=== PATIENT | male | born 1960 | race Caucasian/White ===

== ENCOUNTER 2023-03-19 11:10 | Outpatient (RCR) | payer BC | END 2023-04-02 | disposition home or self-care (01) | LOC: CR 11:10 | PROVIDERS: ATTEND Surgery | DX: Z29.8 Encounter for other specified prophylactic measures (principal); I25.119 Atherosclerotic heart disease of native coronary artery with unspecified angina pectoris | CPT/HCPCS: 93798 ==

== ENCOUNTER 2023-03-22 13:51 | Emergency (ER) | payer BC ==
[~2023-03-22] VITALS: Ht 177 cm; Wt 104.0 kg
--- NOTE | 2023-03-22 14:59 | ED Cough/URI ---
General Chief Complaint: Cough/Cold/Flu Symptoms Stated Complaint: FEVER COUGH Nursing Triage Note: ARRIVED VIA AMB TO ROOM 07 WITH COMPLAINTS OF COUGH X2 WEEKS AND FEVER STARTING ON FRI. COVID NEG ON FRI. OPEN HEART 02-06-23. Source: patient Exam Limitations: no limitations History of Present Illness Date Seen by Provider: March 22, 2023 Time Seen by Provider: 14:56 Initial Comments Patient is a 62-year-old male who presents ED complaining of a dry nonproductive cough over the past 2 weeks. Coughing is worse when lying down. Denies of any shortness of breath. Patient has developed some chest wall pain, arm pain secondary to the cough. Denies of any wheezing or specific chest pain patient reports body aches fatigue and weakness. States he has had a temperature as high as 101.6 at home. Has been taken Tylenol for this fever. Patient denies of any nausea vomiting, diarrhea. Patient had open heart surgery February [address] [facility]. Was scheduled to follow-up with his primary care physician Talon yesterday but did not make the appointment secondary to not feeling well. He is currently on Eliquis. Was recommended come the ED today to rule out pneumonia versus PE. Patient denies abdominal pain, headache, dizziness, visual changes, sore throat, ear pain Allergies and Home Medications Allergies Coded Allergies: Penicillins (Verified Allergy, Unknown, 03/22/23) Patient Home Medication List Home Medication List Reviewed: Yes Review of Systems Review of Systems Constitutional: No chills, No diaphoresis EENTM: No hearing loss, No ear pain, No blurred vision, No double vision Respiratory: cough; No dyspnea on exertion Cardiovascular: chest pain Gastrointestinal: No abdominal pain, No diarrhea, No nausea, No vomiting Genitourinary: No decreased output Musculoskeletal: No back pain, No joint pain Skin: No change in color, No change in hair/nails All Other Systems Reviewed Negative Unless Noted: Yes Past Qabpigk-Rjpdmb-Brnsqr Hx Patient Social History Tobacco Use?: No Substance use?: No Alcohol Use?: No Physical Exam Vital Signs - First Documented 03/22/23 14:28 Temp 36.9 Pulse 101 Resp 16 B/P (MAP) 152/83 (106) Pulse Ox 98 O2 Delivery Room Air Capillary Refill : Less Than 3 Seconds Height: '" Weight: lbs. oz. 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 nml as tested, no motor/sensory deficits, alert, normal mood/affect, oriented x 3 Skin: normal color, warm/dry Focused Exam Lactate Level 03/22/23 14:50: Lactic Acid Level 2.01*H 03/22/23 17:51: Lactic Acid Level 1.90 Lactic Acid Level Laboratory Tests Test 03/22/23 14:50 03/22/23 17:51 Lactic Acid Level 2.01 MMOL/L (0.50-2.00) *H 1.90 MMOL/L (0.50-2.00) Progress/Results/Core Measures Suspected Sepsis SIRS Temperature: Pulse: 101 Respiratory Rate: 16 Laboratory Tests 03/22/23 14:50: White Blood Count 19.0H Blood Pressure 152 /83 Mean: 106 03/22/23 14:50: Lactic Acid Level 2.01*H 03/22/23 17:51: Lactic Acid Level 1.90 Laboratory Tests 03/22/23 14:50: Creatinine 1.18, INR Comment 1.4, Platelet Count 256, Total Bilirubin 1.0 Results/Orders Lab Results Laboratory Tests Test 03/22/23 14:28 03/22/23 14:50 03/22/23 15:00 03/22/23 17:51 Range/Units Urine Color YELLOW Urine Clarity CLEAR Urine pH 5.0 5-9 Urine Specific Ward 1.015 L 1.016-1.022 Urine Protein TRACE H NEGATIVE Urine Glucose (UA) 3+ H NEGATIVE Urine Ketones NEGATIVE NEGATIVE Urine Nitrite NEGATIVE NEGATIVE Urine Bilirubin NEGATIVE NEGATIVE Urine Urobilinogen 0.2 < = 1.0 MG/DL Urine Leukocyte Esterase NEGATIVE NEGATIVE Urine RBC (Auto) 3+ H NEGATIVE Urine RBC 5-10 H /HPF Urine WBC RARE /HPF Urine Squamous Epithelial Cells 2-5 /HPF Urine Crystals PRESENT H /LPF Urine Amorphous Sediment FEW PACHECO URATES H /LPF Urine Bacteria FEW H /HPF Urine Casts PRESENT /LPF Urine Coarse Granular Casts 2-5 H /LPF Urine Mucus SMALL H /LPF Urine Culture Indicated CULTURE PENDING White Blood Count 19.0 H 4.3-11.0 10^3/uL Red Blood Count 4.73 4.30-5.52 10^6/uL Hemoglobin 14.2 13.3-17.7 g/dL Hematocrit 43 40-54 % Mean Corpuscular Volume 91 80-99 fL Mean Corpuscular Hemoglobin 30 25-34 pg Mean Corpuscular Hemoglobin Concent 33 32-36 g/dL Red Cell Distribution Width 14.7 H 10.0-14.5 % Platelet Count 256 130-400 10^3/uL Mean Platelet Volume 11.0 9.0-12.2 fL Immature Granulocyte % (Auto) 1 % Neutrophils (%) (Auto) 90 H 42-75 % Lymphocytes (%) (Auto) 3 L 12-44 % Monocytes (%) (Auto) 6 0-12 % Eosinophils (%) (Auto) 0 0-10 % Basophils (%) (Auto) 0 0-10 % Neutrophils # (Auto) 17.1 H 1.8-7.8 10^3/uL Lymphocytes # (Auto) 0.6 L 1.0-4.0 10^3/uL Monocytes # (Auto) 1.1 H 0.0-1.0 10^3/uL Eosinophils # (Auto) 0.0 0.0-0.3 10^3/uL Basophils # (Auto) 0.0 0.0-0.1 10^3/uL Immature Granulocyte # (Auto) 0.1 0.0-0.1 10^3/uL Neutrophils % (Manual) 83 % Lymphocytes % (Manual) 9 % Monocytes % (Manual) 5 % Basophils % (Manual) 1 % Band Neutrophils 2 % Platelet Estimate NORMAL Blood Morphology Comment NORMAL Prothrombin Time 17.0 H 12.2-14.7 SEC INR Comment 1.4 0.8-1.4 Activated Partial Thromboplast Time 42 H 24-35 SEC Sodium Level 140 135-145 MMOL/L Potassium Level 3.6 3.6-5.0 MMOL/L Chloride Level 104 98-107 MMOL/L Carbon Dioxide Level 24 21-32 MMOL/L Anion Gap 12 5-14 MMOL/L Blood Urea Nitrogen 25 H 7-18 MG/DL Creatinine 1.18 0.60-1.30 MG/DL Estimat Glomerular Filtration Rate 69 BUN/Creatinine Ratio 21 Glucose Level 211 H 70-105 MG/DL Lactic Acid Level 2.01 *H 1.90 0.50-2.00 MMOL/L Calcium Level 9.3 8.5-10.1 MG/DL Corrected Calcium 9.6 8.5-10.1 MG/DL Total Bilirubin 1.0 0.1-1.0 MG/DL Aspartate Amino Transf (AST/SGOT) 14 5-34 U/L Alanine Aminotransferase (ALT/SGPT) 17 0-55 U/L Alkaline Phosphatase 113 40-136 U/L Troponin I 0.051 H <0.028 NG/ML B-Type Natriuretic Peptide 191.1 H <100.0 PG/ML Total Protein 6.7 6.4-8.2 GM/DL Albumin 3.6 3.2-4.5 GM/DL Influenza Type A (RT-PCR) Not Detected Not Detecte Influenza Type B (RT-PCR) Not Detected Not Detecte SARS-CoV-2 RNA (RT-PCR) Not Detected Not Detecte Micro Results Microbiology 03/22/23 Blood Culture - Final, Complete Staphylococcus aureus See Comments 03/22/23 Blood Culture - Final, Complete Staphylococcus aureus See Comments 03/22/23 Urine Culture - Final, Complete NO GROWTH My Orders Orders - ROSARIO DAO Cbc With Automated Diff (03/22/23 14:54) Comprehensive Metabolic Panel (03/22/23 14:54) Blood Culture (03/22/23 14:54) Urinalysis (03/22/23 14:54) Urine Culture (03/22/23 14:54) Protime With Inr (03/22/23 14:54) Partial Thromboplastin Time (03/22/23 14:54) Ed Iv/Invasive Line Start (03/22/23 14:54) Ekg Tracing (03/22/23 14:54) Troponin I [place] (03/22/23 14:54) Vital Signs Adult Sepsis Patie Q15M (03/22/23 14:54) Lactic Acid Analyzer (03/22/23 14:54) Influenza A And B By Pcr (03/22/23 14:54) Covid 19 Inhouse Test (03/22/23 14:54) Ct Angio Chest W (R/O Pe) (03/22/23 14:54) Bnp Héctor (03/22/23 14:54) Manual Differential (03/22/23 14:50) Cefepime Injection (Maxipime Injection) (03/22/23 15:30) Ns Iv 1000 Ml (Sodium Chloride 0.9%) (03/22/23 15:41) Iohexol Injection (Omnipaque 350 Mg/Ml 1 (03/22/23 16:00) Received Contrast (Hold Metformin- Contr (03/22/23 16:00) Ns (Ivpb) (Sodium Chloride 0.9% Ivpb Bag (03/22/23 16:00) Vancomycin Injection (Vancomycin Injecti (03/22/23 17:30) Aspirin Chewable Tablet (Baby Aspirin Ch (03/22/23 18:00) Morphine Injection (Morphine Injection (03/22/23 18:00) Medications Given in ED Vital Signs/I&O 03/22/23 03/22/23 03/22/23 03/22/23 14:28 16:22 16:24 18:00 Temp 36.9 37.2 Pulse 101 103 103 Resp 16 16 16 B/P (MAP) 152/83 (106) 142/77 (98) 165/85 (111) Pulse Ox 98 96 96 O2 Delivery Room Air Room Air Room Air 03/22/23 19:37 Temp 37.2 Pulse 102 Resp 16 B/P (MAP) 130/74 Pulse Ox 97 O2 Delivery Room Air Capillary Refill : Less Than 3 Seconds Blood Pressure Mean: 106 ECG Comment Sinus rhythm, intraventricular conduction delay, 98 bpm, QRS duration 134 MS, QTc 384 MS Departure Communication (PCP) Patient is 1 month and a half post open heart surgery. This was performed at [facility]. Cardiac thoracic surgeon Dr. Garcia. Follows eye surgeon in [place]. Patient states over the past 2 months a dry nonproductive cough with substernal chest pain with a cough. He denies of any shortness of breath, wheezing, abdominal pain, vomiting or diarrhea. Low-grade temperature at home. Denies of any leg swelling. Is currently on Eliquis. Patient was recommended come the ED by his primary care physician to rule out pneumonia versus PE. On exam patient in no respiratory distress. Was slightly tachycardic but afebrile. Slightly hypertensive. General cardiac work-up, CT angio of the chest, blood cultures and lactic acid was ordered secondary to the tachycardia and concerning for pneumonia. CBC showed a white blood count of 19. Chemistry showed normal electrolytes and kidney function. Troponin 0.051. BNP 191. Lactic acid 2.01. Patient was given cefepime antibiotic. Patient Was given a liter of fluid due to the tachycardia at a low rate. Patient was given 2 mg of morphine and aspirin 324 mg. EKG shows sinus rhythm without evidence of ST elevation or depression. Concerning for NSTEMI versus pneumonia versus PE. CT angio of the chest showed small bilateral pleural effusions. No evidence of PE or pneumonia. Moderate substernal edema and fluid without evidence of a rim enhancing lesion. Differential would be concern for substernal infection however would not suspect infection a month and a half out. He did states he had some leakage around his surgical scar about a week ago. No leakage at this time. Surgical scar appears to be healing. My concern at this time with elevated troponin, concern for infection secondary to the elevated white blood count and who require IV antibiotics and further evaluation. Troponin may be chronically elevated however recommend serial troponins. Chest pain appears to be worse with the cough. States he had similar type chest pain post surgery but that chest pain improved. Due to the substernal edema and fluid contacted cardiac thoracic surgeon at [facility] Dr. Poe. He did not seem concerned that this was infection however he did recommend admission and further consult and evaluation. Recommend started on antibiotics. Did give vancomycin here as well. Due to not having cardiac thoracic surgery here recommended transfer to [facility]. Currently have no ground EMS. Patient refused air. Discussed that patient needs to be transferred by medical services. He refused to go to [facility]. He states that his son could take him by POV. This would be the only way of transfer. He agreed to sign out AMA and to drive by POV. This was discussed with [facility] and they were okay as long as I was okay. I am not comfortable sending by POV however patient refused any type of medical care if not transferred by POV. Accepting physician is Dr. Bertrand hospitalist. Did not recommend anticoagulant at this time Impression Primary Impression: Elevated troponin Additional Impression: Substernal chest pain Disposition: 02 XFER SHT-TRM HOSP Condition: Stable Transfer Transfer Reason: Exceeds level of care Time Spoke to Accepting Phy: 17:56 Transfer Progress Notes Accepted at [facility] Dr. Jil gallego Transfer Time: 17:56 Transfer Facility: [facility] Method of Transfer: Private Vehicle Departure-Patient Inst. Referrals: NO,LOCAL PHYSICIAN (PCP) Primary Care Physician ROSARIO DAO March 22, 2023 14:59
[2023-03-22 15:13] LABS: BASOPHILS % (AUTO) 0 % (0-10); EOSINOPHILS % (AUTO) 0 % (0-10); HEMATOCRIT 43 % (40-54); HEMOGLOBIN 14.2 g/dL (13.3-17.7); LYMPHOCYTES # (AUTO) 0.6 10^3/uL (1.0-4.0); LYMPHOCYTES % (AUTO) 3 % (12-44); MEAN CORPUSCULAR HEMOGLOBIN 30 pg (25-34); MEAN CORPUSCULAR HGB CONC 33 g/dL (32-36); MEAN CORPUSCULAR VOLUME 91 fL (80-99); MONOCYTES # (AUTO) 1.1 10^3/uL (0.0-1.0); MONOCYTES % (AUTO) 6 % (0-12); NEUTROPHILS # (AUTO) 17.1 10^3/uL (1.8-7.8); NEUTROPHILS % (AUTO) 90 % (42-75); PLATELET COUNT 256 10^3/uL (130-400)
[2023-03-22 15:25] LABS: ALBUMIN 3.6 GM/DL (3.2-4.5); INR 1.4 (0.8-1.4); POTASSIUM 3.6 MMOL/L (3.6-5.0)
[2023-03-22 15:26] LABS: BILIRUBIN,URINE NEGATIVE (NEGATIVE); CLARITY,URINE CLEAR; COLOR,URINE YELLOW; GLUCOSE, URINE (UA) 3+ (NEGATIVE); KETONES,URINE NEGATIVE (NEGATIVE); LEUKOCYTE ESTERASE ,URINE NEGATIVE (NEGATIVE); NITRITE,URINE NEGATIVE (NEGATIVE); PROTEIN,URINE TRACE (NEGATIVE)
[2023-03-22 15:26] LABS: CALCIUM 9.3 MG/DL (8.5-10.1)
[2023-03-22 15:27] LABS: TOTAL PROTEIN 6.7 GM/DL (6.4-8.2)
[2023-03-22] MEDS ORDERED: CEFEPIME INJECTION 1,000 MG in NS (IVPB) 50 ML IV ONE (15:30)
[2023-03-22 15:31] LABS: CREATININE SERUM 1.18 MG/DL (0.60-1.30)
[2023-03-22] MEDS ORDERED: NS IV 1000 ML 1,000 ML IV STA (15:41)
[2023-03-22 15:50] LABS: AMORPHOUS SEDIMENT,UR FEW AMOR URATES /LPF; BACTERIA,URINE FEW /HPF; WBC,URINE RARE /HPF
[2023-03-22] MEDS ORDERED: IOHEXOL 350 MG/ML 100 ML (OMNIPAQUE 350) VIAL IV ONE (16:00)
[2023-03-22] MEDS ORDERED: NS 100 ML (IVPB) BAG IV ONE (16:00)
[2023-03-22] MEDS ORDERED: HOLD METFORMIN - RECEIVED CONTRAST 20 ML VIAL IV SCH (16:00)
[2023-03-22 16:07] LABS: BAND NEUTROPHILS 2 %; BASOPHILS % (MANUAL) 1 %; LYMPHOCYTES % (MANUAL) 9 %; MONOCYTES % (MANUAL) 5 %; NEUTROPHILS % (MANUAL) 83 %; PLATELET ESTIMATE NORMAL; RBC MORPH NORMAL
--- NOTE | 2023-03-22 16:29 | Diagnostic Imaging Report ---
HISTORY: Shortness of breath and chest pain. TECHNIQUE: Axial CT of the chest was performed following intravenous administration of contrast timed for evaluation of the pulmonary arteries with sagittal, coronal and MIP reformats. All CT scans use one or more of the following dose optimizing techniques: automated exposure control, MA and/or KvP adjustment based on patient size and exam type or iterative reconstruction. COMPARISON: None. FINDINGS: The bolus timing is somewhat suboptimal, likely due to transient interruption of contrast from respiration. Pulmonary arteries are diagnostic to the lobar and some proximal segmental levels. No filling defect is seen to indicate a pulmonary embolus. The heart is normal in size. Sternotomy wires and post-CABG changes are seen. There is moderate substernal edema and fluid. Contrast timing is suboptimal to evaluate for a rim-enhancing fluid collection, but no definite drainable collection is seen. The aorta is normal in caliber. There is no mediastinal adenopathy. There are small bilateral pleural effusions. There is dependent atelectasis. There is additional atelectasis in the left lung base. There is no pneumothorax. No acute osseous abnormality is seen. Imaged portions of the upper abdomen demonstrate no acute abnormality. IMPRESSION: 1. Suboptimal contrast bolus, but no pulmonary embolus is seen. 2. Moderate substernal edema and fluid, likely secondary to recent sternotomy. 3. Small bilateral pleural effusions with atelectasis. Dictated by: Dictated on workstation # [id number]
[2023-03-22] MEDS ORDERED: VANCOMYCIN INJECTION 1,000 MG in NS (IVPB) 250 ML IV ONE (17:30)
[2023-03-22] MEDS ORDERED: ASPIRIN 81 MG CHEW (CHILDREN'S ASA) PO ONE (18:00)
[2023-03-22] MEDS ORDERED: morphine INJ 10 MG/ML 1ML (SYR OR VIAL) IVP STA (18:00)
[2023-03-22 19:37] VITALS: BP 130/74
== END 2023-03-22 19:37 | disposition short-term general hospital (02) ==
LOC: EDUNIT# 13:51 → ER 13:54
DX: R77.8 Other specified abnormalities of plasma proteins (principal); J90 Pleural effusion, not elsewhere classified; Z79.01 Long term (current) use of anticoagulants; Z88.0 Allergy status to penicillin; Z28.310 Unvaccinated for COVID-19; Z20.822 Contact with and (suspected) exposure to COVID-19
CPT/HCPCS: 36415; 71275; 80053; 81000; 83605; 83880; 84484; 85007; 85027; 85610; 85730; 87040; 87077; 87088; 87636; 93005

== ENCOUNTER → 2023-04-21 | Outpatient (CLI) | payer BC ==
[2023-04-21 20:32] LABS: BASOPHILS # (AUTO) 0.1 10^3/uL (0.0-0.1); BASOPHILS % (AUTO) 1 % (0-10); EOSINOPHILS % (AUTO) 15 % (0-10); HEMATOCRIT 38 % (40-54); HEMOGLOBIN 12.2 g/dL (13.3-17.7); LYMPHOCYTES # (AUTO) 1.2 10^3/uL (1.0-4.0); LYMPHOCYTES % (AUTO) 18 % (12-44); MEAN CORPUSCULAR HEMOGLOBIN 30 pg (25-34); MEAN CORPUSCULAR HGB CONC 32 g/dL (32-36); MEAN CORPUSCULAR VOLUME 93 fL (80-99); MEAN PLATELET VOLUME 10.7 fL (9.0-12.2); MONOCYTES # (AUTO) 0.5 10^3/uL (0.0-1.0); MONOCYTES % (AUTO) 7 % (0-12); NEUTROPHILS # (AUTO) 4.1 10^3/uL (1.8-7.8); NEUTROPHILS % (AUTO) 60 % (42-75); PLATELET COUNT 235 10^3/uL (130-400); WHITE BLOOD COUNT 6.8 10^3/uL (4.3-11.0)
[2023-04-21 20:45] LABS: ALANINE AMINOTRANSFERASE < 6 U/L (0-55); ALBUMIN 3.6 GM/DL (3.2-4.5); ALKALINE PHOSPHATASE 119 U/L (40-136); BILIRUBIN,TOTAL 0.5 MG/DL (0.1-1.0); BUN/CREATININE RATIO 21; CALCIUM 8.2 MG/DL (8.5-10.1); CARBON DIOXIDE 26 MMOL/L (21-32); CHLORIDE 107 MMOL/L (98-107); CREATININE SERUM 1.16 MG/DL (0.60-1.30); GFR ESTIMATED 70; GLUCOSE 157 MG/DL (70-105); POTASSIUM 3.9 MMOL/L (3.6-5.0); SODIUM 142 MMOL/L (135-145); TOTAL PROTEIN 5.9 GM/DL (6.4-8.2)
[2023-04-21 21:00] LABS: BAND NEUTROPHILS 4 %; EOSINOPHILS % (MANUAL) 12 %; LYMPHOCYTES % (MANUAL) 19 %; MONOCYTES % (MANUAL) 7 %; NEUTROPHILS % (MANUAL) 55 %; REACTIVE LYMPHOCYTES 3 %
== END ==
LOC: LAB 20:22
PROVIDERS: ATTEND Urology
DX: S21.101A Unspecified open wound of right front wall of thorax without penetration into thoracic cavity, initial encounter (principal); R78.81 Bacteremia; X58.XXXA Exposure to other specified factors, initial encounter
CPT/HCPCS: 36415; 80053; 85007; 85027

== ENCOUNTER → 2023-04-28 | Outpatient (CLI) | payer BC ==
[2023-04-28 19:57] LABS: BASOPHILS # (AUTO) 0.1 10^3/uL (0.0-0.1); BASOPHILS % (AUTO) 1 % (0-10); EOSINOPHILS # (AUTO) 0.6 10^3/uL (0.0-0.3); EOSINOPHILS % (AUTO) 10 % (0-10); HEMATOCRIT 39 % (40-54); HEMOGLOBIN 12.3 g/dL (13.3-17.7); LYMPHOCYTES # (AUTO) 1.1 10^3/uL (1.0-4.0); LYMPHOCYTES % (AUTO) 19 % (12-44); MEAN CORPUSCULAR HEMOGLOBIN 30 pg (25-34); MEAN CORPUSCULAR HGB CONC 32 g/dL (32-36); MEAN CORPUSCULAR VOLUME 93 fL (80-99); MEAN PLATELET VOLUME 10.6 fL (9.0-12.2); MONOCYTES # (AUTO) 0.5 10^3/uL (0.0-1.0); MONOCYTES % (AUTO) 8 % (0-12); NEUTROPHILS # (AUTO) 3.6 10^3/uL (1.8-7.8); NEUTROPHILS % (AUTO) 61 % (42-75); PLATELET COUNT 239 10^3/uL (130-400); WHITE BLOOD COUNT 5.8 10^3/uL (4.3-11.0)
[2023-04-28 20:14] LABS: ALBUMIN 3.6 GM/DL (3.2-4.5); CHLORIDE 108 MMOL/L (98-107); POTASSIUM 4.1 MMOL/L (3.6-5.0); SODIUM 142 MMOL/L (135-145)
[2023-04-28 20:15] LABS: CALCIUM 8.3 MG/DL (8.5-10.1)
[2023-04-28 20:16] LABS: GLUCOSE 136 MG/DL (70-105); TOTAL PROTEIN 6.1 GM/DL (6.4-8.2)
[2023-04-28 20:17] LABS: CARBON DIOXIDE 25 MMOL/L (21-32)
[2023-04-28 20:18] LABS: BILIRUBIN,TOTAL 0.4 MG/DL (0.1-1.0)
[2023-04-28 20:20] LABS: ALKALINE PHOSPHATASE 128 U/L (40-136); CREATININE SERUM 1.25 MG/DL (0.60-1.30); GFR ESTIMATED 64
[2023-04-28 20:21] LABS: BUN/CREATININE RATIO 18
[2023-04-28 20:23] LABS: ALANINE AMINOTRANSFERASE < 6 U/L (0-55)
== END ==
LOC: LABNPT 19:53
DX: S21.101A Unspecified open wound of right front wall of thorax without penetration into thoracic cavity, initial encounter (principal); X58.XXXA Exposure to other specified factors, initial encounter
CPT/HCPCS: 80053; 85025

== ENCOUNTER → 2023-05-19 | Outpatient (CLI) | payer BC, MEDICARE ==
[2023-05-19 10:25] LABS: BASOPHILS # (AUTO) 0.1 10^3/uL (0.0-0.1); BASOPHILS % (AUTO) 1 % (0-10); EOSINOPHILS # (AUTO) 0.6 10^3/uL (0.0-0.3); EOSINOPHILS % (AUTO) 10 % (0-10); HEMATOCRIT 42 % (40-54); HEMOGLOBIN 13.3 g/dL (13.3-17.7); LYMPHOCYTES # (AUTO) 1.1 10^3/uL (1.0-4.0); LYMPHOCYTES % (AUTO) 18 % (12-44); MEAN CORPUSCULAR HEMOGLOBIN 28 pg (25-34); MEAN CORPUSCULAR HGB CONC 31 g/dL (32-36); MEAN CORPUSCULAR VOLUME 89 fL (80-99); MEAN PLATELET VOLUME 9.7 fL (9.0-12.2); MONOCYTES # (AUTO) 0.5 10^3/uL (0.0-1.0); MONOCYTES % (AUTO) 8 % (0-12); NEUTROPHILS # (AUTO) 3.9 10^3/uL (1.8-7.8); NEUTROPHILS % (AUTO) 63 % (42-75); PLATELET COUNT 260 10^3/uL (130-400); WHITE BLOOD COUNT 6.2 10^3/uL (4.3-11.0)
[2023-05-19 10:43] LABS: ERYTHROCYTE SEDIMENTATION RATE 4 MM/HR (0-30)
[2023-05-19 10:49] LABS: ALBUMIN 3.8 GM/DL (3.2-4.5); BILIRUBIN,TOTAL 0.8 MG/DL (0.1-1.0); CALCIUM 8.7 MG/DL (8.5-10.1); CREATININE SERUM 1.17 MG/DL (0.60-1.30); TOTAL PROTEIN 6.7 GM/DL (6.4-8.2)
== END ==
LOC: LAB 09:59
PROVIDERS: ATTEND Internal Medicine Infectious Disease
DX: S21.101A Unspecified open wound of right front wall of thorax without penetration into thoracic cavity, initial encounter (principal); L08.9 Local infection of the skin and subcutaneous tissue, unspecified
CPT/HCPCS: 36415; 80053; 85025; 85652; 86141

== ENCOUNTER 2023-06-25 10:56 | Outpatient (RCR) | payer MEDICARE ==
[2023-06-25 11:36] LABS: BASOPHILS # (AUTO) 0.1 10^3/uL (0.0-0.1); BASOPHILS % (AUTO) 1 % (0-10); EOSINOPHILS # (AUTO) 0.5 10^3/uL (0.0-0.3); EOSINOPHILS % (AUTO) 10 % (0-10); HEMATOCRIT 42 % (40-54); HEMOGLOBIN 13.4 g/dL (13.3-17.7); LYMPHOCYTES # (AUTO) 1.1 10^3/uL (1.0-4.0); LYMPHOCYTES % (AUTO) 21 % (12-44); MEAN CORPUSCULAR HEMOGLOBIN 27 pg (25-34); MEAN CORPUSCULAR HGB CONC 32 g/dL (32-36); MEAN CORPUSCULAR VOLUME 83 fL (80-99); MEAN PLATELET VOLUME 10.3 fL (9.0-12.2); MONOCYTES # (AUTO) 0.5 10^3/uL (0.0-1.0); MONOCYTES % (AUTO) 9 % (0-12); NEUTROPHILS # (AUTO) 3.3 10^3/uL (1.8-7.8); NEUTROPHILS % (AUTO) 60 % (42-75); PLATELET COUNT 216 10^3/uL (130-400); WHITE BLOOD COUNT 5.5 10^3/uL (4.3-11.0)
[2023-06-25 11:51] LABS: ERYTHROCYTE SEDIMENTATION RATE 1 MM/HR (0-30)
[2023-06-25 11:56] LABS: ALBUMIN 3.8 GM/DL (3.2-4.5); BILIRUBIN,TOTAL 0.7 MG/DL (0.1-1.0); CALCIUM 8.2 MG/DL (8.5-10.1); CREATININE SERUM 1.12 MG/DL (0.60-1.30); POTASSIUM 3.9 MMOL/L (3.6-5.0); TOTAL PROTEIN 6.1 GM/DL (6.4-8.2)
== END 2023-07-03 | disposition home or self-care (01) ==
LOC: LAB 10:56
PROVIDERS: ATTEND Internal Medicine Infectious Disease
DX: S21.101A Unspecified open wound of right front wall of thorax without penetration into thoracic cavity, initial encounter (principal); L08.9 Local infection of the skin and subcutaneous tissue, unspecified; X58.XXXA Exposure to other specified factors, initial encounter
CPT/HCPCS: 36415; 80053; 85025; 85652; 86141

== ENCOUNTER 2023-06-30 10:56 | Outpatient (RCR) | payer MEDICARE | END 2023-07-03 | disposition home or self-care (01) | LOC: CR 10:56 | PROVIDERS: ATTEND Internal Medicine | DX: Z29.8 Encounter for other specified prophylactic measures (principal); I25.5 Ischemic cardiomyopathy; I42.0 Dilated cardiomyopathy; Z95.1 Presence of aortocoronary bypass graft | CPT/HCPCS: 93798 ==

== ENCOUNTER 2023-08-01 10:11 | Outpatient (RCR) | payer MEDICARE | END 2023-08-02 | disposition home or self-care (01) | LOC: CR 10:11 | PROVIDERS: ATTEND Internal Medicine | DX: Z29.8 Encounter for other specified prophylactic measures (principal); I25.5 Ischemic cardiomyopathy; I42.0 Dilated cardiomyopathy; Z95.1 Presence of aortocoronary bypass graft | CPT/HCPCS: 93798 ==